=== PATIENT | male | born 1935 | race Caucasian/White ===

== ENCOUNTER 2017-12-15 21:18 | Inpatient (IN) | payer OTHER ==
[2017-12-16] MEDS ORDERED: Scopolamine 1.5 mg/72 hour Patch TOP PRN (00:49)
[2017-12-16] MEDS ORDERED: Acetaminophen 650 MG Suppository PR PRN (00:49)
[2017-12-16] MEDS ORDERED: Promethazine HCl 25 MG SUPP PR PRN (00:49)
[2017-12-16 08:10] VITALS: BP 138/69; TEMP 98
--- NOTE | 2017-12-16 08:10 | EEG ---
Referring Physician: QUE EEG # [id number] TEST TYPE: ROUTINE PORTABLE INPATIENT REPORT: AN EEG USING THE [employer]NATIONAL TEN-TWENTY SYSTEM OF ELECTRODE PLACEMENT WAS PERFORMED. The background activity is a low amplitude l9 hertz alpha frequency. Some intermixed delta activity is seen over both hemispheres. There was some focal, phase reversing repetitive transients seen in the right right parietal region. These would build up in frequency and were followed by bursts of EMG artifact. PHOTIC STIMULATION: Was unremarkable. No sleep transients were seen. IMPRESSION: THIS IS AN ABNORMAL EEG FOR THE FINDINGS OF SOME FOCAL REPETITIVE DISCHARGES IN THE RIGHT PARIETAL REGION SUGGESTING A SEIZURE FOCUS. Game Operator: SHARRI Room Inspector: EEG.[facility] MTD[facility]
[2017-12-16] MEDS: Lorazepam 2 MG/ML VIAL SLOW IVP PRN ×2 (11:10→17:28)
[2017-12-16] MEDS ORDERED: Lorazepam 2 MG/ML VIAL SLOW IVP SCH (21:00)
--- NOTE | 2017-12-17 15:14 | DS ---
DATE OF ADMISSION: 12/16/2017 DATE OF : 12/16/2017 BRIEF SUMMARY OF HOSPITAL COURSE: The patient is an 82-year-old white male, who was admitted to [facility] after undergoing a cardiac arrest, sepsis, and non-Q-wave [place] with acute renal injury. The tennille lemus's family decided that the patient would be extubated and placed under hospice care and was admitted to inpatient hospice. The patient was treated appropriately with comfort measures and then was visi yelena at the time of 8:45 p.m. JOANNE Bowie, charge nurse, went into the room and noted that patient was without respirations and had no response to stimuli. There was no pulse and no heartbeat, and tennille lemus was pronounced at that time. The patient's daughter, Marilee, was contacted as well as [facility] nurse, and the patient's body was released to the home. CAUSE OF : was asystole secondary to cardiac arrhythmia as related to his recent episode of sepsis.
--- NOTE | 2017-12-17 15:14 | HP ---
DATE OF ADMISSION: 12/16/2017 REASON FOR ADMISSION: Terminal status related to cardiac arrest, acute respiratory failure and acute kidney injury. HISTORY OF PRESENT ILLNESS: The patient is an 82-year-old white male who was admitted to [facility] on 12/09/2017. He was found down on the floor unresponsive. In the emergency room, he was found to be nonverbal and confused. A CT scan of brain showed a small subdural hematom a and he was admitted for severe sepsis, acute kidney injury, non-ST elevation myocardial infarction, metabolic encephalopathy. He was initially admitted to the Intensive Care Unit; at that time, he di d not significantly improve. He was found to have seizure activity on 12/12/2017. He apparently had a non-ST elevation [place] and after consultation with Dr. Norris, the daughter who is medical power of public health teacher agreed that the patient was terminal and was extubated at that time. After being extubated, the patient was determined to be again terminal and was referred to palliative care and then hospice care. He was made inpatient hospice on 12/16/2017. Plan is for inpatient hospice with comfort reny ures including oxygen as needed, morphine p.r.n. for pain, scopolamine p.r.n. secretions and lorazepa m as needed for seizure activity and irritability. PAST MEDICAL HISTORY: Includes hypertension and possible history of coronary artery disease. PAST SURGICAL HISTORY: Unknown. MEDICATIONS PRIOR TO HIS ACUTE ADMISSION: He had been on metoprolol, lisinopril, diltiazem, atorvast atin, loratadine. PHYSICAL EXAMINATION: GENERAL: Obtunded white male, unresponsive to verbal or tactile stimuli, lying on exam bed. VITAL SIGNS: Blood pressure was 102/58, respiratory rate was 24, pulse was 82, temperature 97.6. HEENT: Oropharynx, mucous membranes were dry. NECK: Supple. CHEST: Had diffuse rhonchi bilaterally. HEART: Regular rate and rhythm. ABDOMEN: Flat and soft. EXTREMITIES: Showed cool pale extremities x4. NEUROLOGIC: The patient again was unresponsive to tactile and verbal stimuli. ASSESSMENT AND PLAN: Status post sepsis with acute renal injury, acute coronary syndrome, status pos t suspected cardiac arrest with non-Q-wave [place], status post seizure this episode with metabolic enceph alopathy. PLAN: The patient is terminal. Life expectancy is less than 24 hours. We will treat patient with marly nix as needed for any signs of pain or distress and benzodiazepines for any signs of seizure acti vity and/or irritability. Scopolamine patch for secretions and family is well aware of patient's sta tus and agreed with hospice placement. If patient stabilizes to the point where he could be discharg ed from acute inpatient stay, we will address at that time.
== END 2017-12-16 20:45 | disposition expired | DRG 951 ==
LOC: T4-A 21:18
PROVIDERS: ADMIT Family Medicine; ATTEND Family Medicine
DX: Z51.5 Encounter for palliative care (principal); I21.4 Non-ST elevation (NSTEMI) myocardial infarction; R65.20 Severe sepsis without septic shock; I46.9 Cardiac arrest, cause unspecified; J96.00 Acute respiratory failure, unspecified whether with hypoxia or hypercapnia; G93.41 Metabolic encephalopathy; A41.9 Sepsis, unspecified organism; N17.9 Acute kidney failure, unspecified; I24.9 Acute ischemic heart disease, unspecified; Z66 Do not resuscitate; I10 Essential (primary) hypertension; R56.9 Unspecified convulsions; I25.10 Atherosclerotic heart disease of native coronary artery without angina pectoris
CPT/HCPCS: J2060; J2270